=== PATIENT | male | born 1965 | race Caucasian/White ===

== ENCOUNTER → 2022-01-21 | Emergency (ER) | payer OTHER ==
[~2022-01-21] VITALS: Ht 177.8 cm; Wt 102.0 kg
[~2022-01-21] MED LIST: KETOROLAC TROMETH 60MG/2ML VIAL IM ONE
[2022-01-21 16:30] VITALS: BP 130/93
== END | disposition home or self-care (01) ==
LOC: EEVIPCON 15:38 → ER 15:38
DX: S69.91XA Unspecified injury of right wrist, hand and finger(s), initial encounter (principal); I10 Essential (primary) hypertension; E78.5 Hyperlipidemia, unspecified; Z88.0 Allergy status to penicillin; X58.XXXA Exposure to other specified factors, initial encounter; Y93.89 Activity, other specified; Y92.89 Other specified places as the place of occurrence of the external cause; Y99.8 Other external cause status
CPT/HCPCS: 73110; 96372; 99283; J1885